=== PATIENT | male | born 1945 | race Caucasian/White ===

== ENCOUNTER 2025-04-01 20:52 | Emergency (ER) | payer MEDICARE ==
[~2025-04-01] VITALS: Ht 160 cm; Wt 79.0 kg
[2025-04-01] MEDS ORDERED: METO1TAB32 PO (21:15)
[2025-04-01] MEDS ORDERED: OXYB10TA23 PO (21:15)
[2025-04-01] MEDS ORDERED: TAMS1CAP17 PO (21:15)
[2025-04-01] MEDS ORDERED: FLUO-290 PO (21:15)
[2025-04-01] MEDS ORDERED: PANT20TA6 PO (21:15)
[2025-04-01] MEDS ORDERED: LEVO125T4 PO (21:15)
[2025-04-01] MEDS ORDERED: ROSU5TAB49 PO (21:15)
[2025-04-01] MEDS ORDERED: BUSP1TAB PO (21:15)
[2025-04-02 01:18] VITALS: BP 131/84; TEMP 97.8; O2SAT 99
== END 2025-04-02 01:22 | disposition home or self-care (01) ==
LOC: M ED 20:52
DX: S30.0XXA Contusion of lower back and pelvis, initial encounter (principal); W01.0XXA Fall on same level from slipping, tripping and stumbling without subsequent striking against object, initial encounter; K21.9 Gastro-esophageal reflux disease without esophagitis; E78.5 Hyperlipidemia, unspecified; Z79.899 Other long term (current) drug therapy; Y92.009 Unspecified place in unspecified non-institutional (private) residence as the place of occurrence of the external cause; Y93.89 Activity, other specified; Y99.9 Unspecified external cause status